=== PATIENT | female | born 1985 | race African-American/Black ===

== ENCOUNTER 2018-03-28 13:35 | Outpatient (CLI) | payer OTHER | END 2018-03-28 15:35 | disposition home or self-care (01) | LOC: OBT 13:35 → L-D 13:35 → OBT 15:35 | DX: O99.283 Endocrine, nutritional and metabolic diseases complicating pregnancy, third trimester (principal); E05.90 Thyrotoxicosis, unspecified without thyrotoxic crisis or storm; Z3A.37 37 weeks gestation of pregnancy | CPT/HCPCS: 76815; 76818 ==